=== PATIENT | female | born 1945 | race Caucasian/White ===

== ENCOUNTER 2018-11-11 17:11 | Emergency (ER) | payer MEDICARE, BC ==
[~2018-11-11] VITALS: Ht 157.5 cm; Wt 61.4 kg
[2018-11-11 17:56] LABS: EOS # 0.1 (0.04-0.40); EOS % 2.6 % (1.0-5.0); HEMATOCRIT 38.8 % (37.0-47.0); HEMOGLOBIN 12.6 g/dL (12.5-16.0); LYMPH# 1.8 (1.50-4.00); MEAN CELL VOLUME 87 fl (78-100); MEAN CORPUSCULAR HEMOGLOBIN 28 pg (27-31); MEAN CORPUSCULAR HGB CONC 33 g/dL (33-37); MEAN PLATELET VOLUME 9.4 fl (7.4-10.4); MONO # 0.5 (0.20-0.80); PLATELET COUNT 254 K/mm3 (130-400); RED BLOOD COUNT 4.47 M/mm3 (4.10-5.30); RED CELL DISTRIBUTION WIDTH 13.4 % (11.5-14.5); WHITE BLOOD COUNT 5.4 K/mm3 (4.8-10.8)
[2018-11-11 18:26] LABS: ALBUMIN 4.1 g/dL (3.4-4.8)
[2018-11-11 18:27] LABS: POTASSIUM 3.6 mmol/L (3.5-5.1)
[2018-11-11 18:28] LABS: CALCIUM 9.3 mg/dL (8.3-10.5)
[2018-11-11 18:29] LABS: TOTAL PROTEIN 6.6 g/dL (6.2-8.1)
[2018-11-11 18:31] LABS: TOTAL BILIRUBIN 0.5 mg/dL (0.2-1.2)
[2018-11-11 19:52] VITALS: BP 165/89
== END 2018-11-11 19:52 | disposition home or self-care (01) ==
LOC: ED 17:11
PROVIDERS: Family Medicine
DX: G45.9 Transient cerebral ischemic attack, unspecified (principal); Z98.890 Other specified postprocedural states

== ENCOUNTER 2018-12-27 13:30 | Outpatient (RCR) | payer MEDICARE, BC | END 2018-12-27 14:00 | LOC: PT 13:30 | DX: M50.30 Other cervical disc degeneration, unspecified cervical region (principal); R20.0 Anesthesia of skin; R20.2 Paresthesia of skin ==

== ENCOUNTER → 2019-11-26 | Outpatient (CLI) | payer MEDICARE, BC | LOC: LAB 09:05 | DX: Z20.828 Contact with and (suspected) exposure to other viral communicable diseases (principal) ==

== ENCOUNTER → 2019-11-29 | Day surgery (SDC) | payer MEDICARE, BC | LOC: MSO 08:15 | DX: Z12.11 Encounter for screening for malignant neoplasm of colon (principal); D12.5 Benign neoplasm of sigmoid colon; K57.30 Diverticulosis of large intestine without perforation or abscess without bleeding; M19.90 Unspecified osteoarthritis, unspecified site; Z20.828 Contact with and (suspected) exposure to other viral communicable diseases; Z88.2 Allergy status to sulfonamides | CPT/HCPCS: 00811; J2704; J3010; J7120 ==

== ENCOUNTER → 2020-01-22 | Outpatient (CLI) | payer MEDICARE, BC | LOC: MAMMO 10:04 | DX: Z13.820 Encounter for screening for osteoporosis (principal); N95.9 Unspecified menopausal and perimenopausal disorder; M85.89 Other specified disorders of bone density and structure, multiple sites ==

== ENCOUNTER → 2021-11-03 | Outpatient (CLI) | payer MEDICARE, BC | LOC: MAMMO 10:00 | DX: Z12.31 Encounter for screening mammogram for malignant neoplasm of breast (principal) ==

== ENCOUNTER → 2023-08-23 | Outpatient (CLI) | payer MEDICARE, BC | LOC: PT 10:42 | DX: M19.072 Primary osteoarthritis, left ankle and foot (principal) ==

== ENCOUNTER → 2023-12-05 | Outpatient (CLI) | payer MEDICARE, BC | LOC: MAMMO 14:00 | DX: Z12.31 Encounter for screening mammogram for malignant neoplasm of breast (principal) ==